=== PATIENT | female | born 1985 | race Caucasian/White ===

== ENCOUNTER 2021-10-31 11:11 | Emergency (ER) | payer OTHER ==
[2021-10-31 11:26] VITALS: BP 124/74; PULSE 104; RESP 16; TEMP 98.6
--- NOTE | 2021-10-31 12:28 | ED ---
General Adult HPI - General Chief complaint: Vaginal Bleeding Stated complaint: 14 wks preg/bleeding Time Seen by Provider: 10/31/21 11:59 Source: patient Mode of arrival: ambulatory Limitations: no limitations - History of Present Illness Initial comments: Patient is a pleasant 36-year-old female presents to the emergency room with complaints of persistent vaginal bleeding. She is currently 14 weeks . She reports that she is having some bleeding last week as well and saw her [employer] MAINTENANCE ASSOCIATE who completed a an ultrasound which advised her that everything looked good in the bleeding was likely secondary to implementation. She is with her first resulting in a due to cord entanglement. She also notes she had elevated amniotic fluid levels throughout her first without any complications. She denies any other significant past medical history. Her MAINTENANCE ASSOCIATE is Dr. Grimes. She is taking vitamins. She denies any cramping, dysuria, urinary frequency or changes in her baseline nausea. She zach es any fevers, chills, or diarrhea. She denies any other complaints or concerns at this time. - Related Data Previous Rx's Medication Instructions Recorded Cephalexin [Keflex] 500 mg PO Q12HR 5 Days #10 cap 10/31/21 Allergies Allergy/AdvReac Type Severity Reaction Status Date / Time soy Allergy Itching Verified 10/31/21 11:27 tree nut [Nut] Allergy Abdominal Verified 10/31/21 11:27 Pain Review of Systems ROS Statement: Those systems with pertinent positive or pertinent negative responses have been documented in the HPI. ROS Other: All systems not noted in ROS Statement are negative. Past Medical History Past Medical History: No Reported History History of Any Multi-Drug Resistant Organisms: None Reported Past Surgical History: Section, Cholecystectomy Additional Past Surgical History / Comment(s): polyp removal from uterus Past Psychological History: Depression Smoking Status: Never smoker Past Alcohol Use History: None Reported Past Drug Use History: None Reported General Exam Limitations: no limitations General appearance: alert, in no apparent distress Head exam: Present: atraumatic, normocephalic, normal inspection Eye exam: Present: normal appearance, PERRL, EOMI. Absent: scleral icterus, conjunctival injection, periorbital swelling ENT exam: Present: normal exam, mucous membranes moist Neck exam: Present: normal inspection. Absent: tenderness, meningismus, lymphadenopathy Respiratory exam: Present: normal lung sounds bilaterally. Absent: respiratory distress, wheezes, rales, rhonchi, stridor Cardiovascular Exam: Present: regular rate, normal rhythm, normal heart sounds. Absent: systolic murmur, diastolic murmur, rubs, gallop, clicks GI/Abdominal exam: Present: soft, normal bowel sounds. Absent: distended, tenderness, guarding, rebound, rigid Rectal exam: Present: deferred Extremities exam: Present: normal inspection, full ROM, normal capillary refill. Absent: tenderness, pedal edema, joint swelling, calf tenderness Back exam: Present: normal inspection Neurological exam: Present: alert, oriented X3, CN II-XII intact Psychiatric exam: Present: normal affect, normal mood Skin exam: Present: warm, dry, intact, normal color. Absent: rash Course Vital Signs 10/31/21 11:23 Temperature 98.6 F Pulse Rate 104 H Respiratory 16 Rate Blood Pressure 124/74 O2 Sat by Pulse 96 Oximetry Medical Decision Making - Medical Decision Making Will check OB transvaginal ultrasound, serum beta levels, CBC, urinalysis along with ABO Rh testing. Transabdominal OB ultrasound shows single viable intrauterine with gestational age consistent with known due date of 14 weeks 2 days and heart rate of 153 bpm. Blood work unremarkable. Urinalysis with trace bacteria likely contaminant however given vaginal bleeding will treat empirically for a urinary tract infection. Will discharge home and advised to follow-up with her MAINTENANCE ASSOCIATE as scheduled. Case discussed with Dr. Gonzalez. - Lab Data Result diagrams: 10/31/21 12:45 Lab Results 10/31/21 10/31/21 10/31/21 Range/Units 12:45 12:45 12:56 WBC 8.1 (3.8-10.6) k/uL RBC 4.48 (3.80-5.40) m/uL Hgb 13.5 (11.4-16.0) gm/dL Hct 39.8 (34.0-46.0) % MCV 89.0 (80.0-100.0) fL MCH 30.1 (25.0-35.0) pg MCHC 33.8 (31.0-37.0) g/dL RDW 13.2 (11.5-15.5) % Plt Count 214 (150-450) k/uL MPV 8.5 Neutrophils % 71 % Lymphocytes % 18 % Monocytes % 5 % Eosinophils % 5 % Basophils % 0 % Neutrophils # 5.7 (1.3-7.7) k/uL Lymphocytes # 1.5 (1.0-4.8) k/uL Monocytes # 0.4 (0-1.0) k/uL Eosinophils # 0.4 (0-0.7) k/uL Basophils # 0.0 (0-0.2) k/uL Urine Color Yellow Urine Appearance Cloudy H (Clear) Urine pH 5.5 (5.0-8.0) Ur Specific [place] 1.026 (1.001-1.035) Urine Protein Trace H (Negative) Urine Glucose (UA) Negative (Negative) Urine Ketones Negative (Negative) Urine Blood Large H (Negative) Urine Nitrite Negative (Negative) Urine Bilirubin Negative (Negative) Urine Urobilinogen <2.0 (<2.0) mg/dL Ur Leukocyte Esterase Negative (Negative) Urine RBC 2 (0-5) /hpf Urine WBC 5 (0-5) /hpf Ur Squamous Epith Cells 18 H (0-4) /hpf Urine Bacteria Rare H (None) /hpf Urine Mucus Many H (None) /hpf Blood Type A Positive Blood Type Recheck No Previous Record Bld Type Recheck Status ABR ONLY - Radiology Data Radiology results: report reviewed, image reviewed Transabdominal uterine ultrasound Viable intrauterine seen at 14 weeks 2 days dissociation with heart tones at 153 bpm Disposition Clinical Impression: Vaginal bleeding Disposition: HOME SELF-CARE Condition: Good Additional Instructions: Please contact her MAINTENANCE ASSOCIATE for recommended follow-up with them. Please return to the Emergency Department if symptoms worsen or any other concerns. Prescriptions: Cephalexin [Keflex] 500 mg PO Q12HR 5 Days #10 cap Is patient prescribed a controlled substance at d/c from ED?: No Referrals: Eliza Kate MD [Primary Care Provider] - 1-2 days Prisca Grimes DO [Doctor of Osteopathic Medicine] - As Soon As Possible Time of Disposition: 13:46
--- NOTE | 2021-10-31 13:04 | US ---
EXAMINATION TYPE: Transabdominal DATE OF EXAM: 10/31/2021 12:50 PM COMPARISON: NONE CLINICAL HISTORY: vaginal bleeding. Spotting since this morning EXAM PERFORMED: Transabdominal (TA) EXAM MEASUREMENTS: GESTATIONAL AGE / DATING Physician Established: (14 weeks/0 days) EDC: 05/01/22 Dates by LMP: LMP unknown Dates by First Scan: No previous this is first scan Dates by Current Scan for: (14 weeks/2 days) EDC: 04/29/22 MATERNAL ANATOMY Uterus: 13.0 x 11.7 x 6.7 cm Right Ovary: Not vis. Left Ovary: 4.3 x 3.7 x 1.9 cm Post CDS / Adnexa: WNL Presence of free fluid: No Presence of corpus luteal cyst: Yes in left ovary measuring 2.1 x 1.7 x 1.7 cm Presence of subchorionic bleed: No GESTATION / SURVEY CRL: 8.4cm (14 weeks/2 days) Heart Rate: 153 bpm Rhythm: Normal IUP: Viable IUP Age Appropriate Anatomy Limbs: Visualized Calvarium: Visualized Date of LMP: Unknown Beta HcG (if available): Unknown Viable IUP seen. IMPRESSION: Single viable intrauterine .
[2021-10-31 13:19] LABS: Basophils % (A) 0 %; Eosinophils # (A) 0.4 k/uL (0-0.7); Eosinophils % (A) 5 %; HCT 39.8 % (34.0-46.0); HGB 13.5 gm/dL (11.4-16.0); Lymphocytes # (A) 1.5 k/uL (1.0-4.8); Lymphocytes % (A) 18 %; MCH 30.1 pg (25.0-35.0); MCHC 33.8 g/dL (31.0-37.0); Mean Platelet Volume 8.5; Monocytes # (A) 0.4 k/uL (0-1.0); Monocytes % (A) 5 %; Neutrophils # (A) 5.7 k/uL (1.3-7.7); Neutrophils % (A) 71 %; Platelet Count 214 k/uL (150-450); RBC 4.48 m/uL (3.80-5.40); RDW 13.2 % (11.5-15.5); WBC 8.1 k/uL (3.8-10.6)
[2021-10-31 13:35] LABS: Appearance,Urine Cloudy (Clear); Bacteria,Urine Rare /hpf; Bilirubin,Urine Negative (Negative); Blood,Urine Large (Negative); Color,Urine Yellow; Glucose,Urine (UA) Negative (Negative); Ketones,Urine Negative (Negative); Leukocyte Esterase,Urine Negative (Negative); Mucus,Urine Many /hpf; Nitrite,Urine Negative (Negative); PH, Urine 5.5 (5.0-8.0); Protein,Urine Trace (Negative); RBC,Urine 2 /hpf (0-5); Specific Gravity,Urine 1.026 (1.001-1.035); Squamous Epithelial Cell,Urine 18 /hpf (0-4); Urobilinogen,Urine <2.0 mg/dL (<2.0); WBC,Urine 5 /hpf (0-5)
== END 2021-10-31 14:13 | disposition home or self-care (01) ==
LOC: EC 11:11
DX: O20.9 Hemorrhage in early pregnancy, unspecified (principal); Z3A.14 14 weeks gestation of pregnancy
CPT/HCPCS: 36415; 76801; 81001; 84702; 85025; 86900; 86901; 99284

== ENCOUNTER 2022-05-04 07:06 | Inpatient (IN) | payer OTHER ==
[2022-05-04] MEDS ORDERED: LIDOCAINE 0.5% (PF) 5 MG/ML (50 ML SDV) SQ PRN (08:04)
[2022-05-04] MEDS ORDERED: TERBUTALINE 1 MG/ML VIAL SQ PRN (08:04)
[2022-05-04] MEDS ORDERED: OXYTOCIN 30 UNITS/500 ML NS 30 UNIT in SALINE 1 500ML.BAG IV SCH ×2 (08:15→13:00)
[2022-05-04] MEDS: LACTATED RINGERS 1,000 ML IV SCH ×3 (08:49→23:38)
[2022-05-04 09:04] LABS: Basophils % (A) 0 %; Eosinophils # (A) 0.3 k/uL (0-0.7); Eosinophils % (A) 2 %; HCT 35.6 % (34.0-46.0); HGB 12.6 gm/dL (11.4-16.0); Lymphocytes # (A) 2.2 k/uL (1.0-4.8); Lymphocytes % (A) 17 %; MCH 30.6 pg (25.0-35.0); MCHC 35.6 g/dL (31.0-37.0); Mean Platelet Volume 11.1; Monocytes # (A) 0.6 k/uL (0-1.0); Monocytes % (A) 4 %; Neutrophils # (A) 10.1 k/uL (1.3-7.7); Neutrophils % (A) 75 %; Platelet Count 187 k/uL (150-450); RBC 4.13 m/uL (3.80-5.40); RDW 13.8 % (11.5-15.5); WBC 13.4 k/uL (3.8-10.6)
[2022-05-04] MEDS ORDERED: BUTORPHANOL 1 MG/ML 1 ML VIAL IV PRN (09:29)
[2022-05-04] MEDS ORDERED: CITRIC ACID-SODIUM CITRATE 15 ML CUP PO ONE (11:40)
[2022-05-04] MEDS ORDERED: MORPHINE SULFATE (PF) 0.3 MG/0.3 ML SYR ONE (12:13)
[2022-05-04] MEDS ORDERED: OXYTOCIN 30 UNITS/500 ML NS BAG IV ONE (12:13)
[2022-05-04] MEDS ORDERED: KETOROLAC 15 MG/ML 1 ML VIAL ONE (12:13)
[2022-05-04] MEDS ORDERED: NALBUPHINE 10 MG/ML (1 ML AMP) ONE (12:13)
[2022-05-04] MEDS ORDERED: diphenhydrAMINE 25 MG CAP PO PRN (12:50)
[2022-05-04] MEDS ORDERED: diphenhydrAMINE 50 MG/ML 1 ML VIAL IVP PRN ×2 (12:50)
[2022-05-04] MEDS ORDERED: ZOLPIDEM 5 MG TAB PO PRN (12:50)
[2022-05-04] MEDS ORDERED: ONDANSETRON 4 MG/2 ML VIAL IVP PRN (12:50)
[2022-05-04] MEDS ORDERED: diphenhydrAMINE 50 MG CAP PO PRN (12:50)
[2022-05-04] MEDS ORDERED: NALOXONE 0.4 MG/ML 1 ML VIAL IV PRN (12:50)
[2022-05-04] MEDS ORDERED: METOCLOPRAMIDE 5 MG/ML 2 ML VIAL IVP PRN (12:50)
[2022-05-04] MEDS ORDERED: LANOLIN CREAM 5 GM TUBE TOPICAL PRN (12:50)
--- NOTE | 2022-05-04 16:39 | P.HPOB ---
History of Present Illness H&P Date: 05/04/22 Chief Complaint: SROM, previous 36-year-old presents at 40 weeks and 3 days complaining of contractions. She was actually found to be ruptured with thick meconium fluid but had no idea when she started leaking. Her cervix was closed, 70% effaced, and -2 station. She is hugo irregularly. heart tones 140 with moderate variability and reactive. The patient had wanted to but with a closed cervix this is unlikely to happen. I was willing to give her a few hours to make some cervical change but she did this and did not make any change. Patient was remote from delivery and we don't know if she has prolonged rupture, she also has thick meconium fluid. repeat section was advised and patient and her agreed to the plan. Review of Systems All systems: negative Constitutional: Denies chills, Denies fever Eyes: denies blurred vision, denies pain Ears, nose, mouth and throat: Denies headache, Denies sore throat Cardiovascular: Denies chest pain, Denies shortness of breath Respiratory: Denies cough Gastrointestinal: Denies abdominal pain, Denies diarrhea, Denies nausea, Denies vomiting Genitourinary: Denies dysuria, Denies hematuria Musculoskeletal: Denies myalgias Integumentary: Denies pruritus, Denies rash Neurological: Denies numbness, Denies weakness Psychiatric: Denies anxiety, Denies depression Endocrine: Denies fatigue, Denies weight change Past Medical History Past Medical History: No Reported History History of Any Multi-Drug Resistant Organisms: None Reported Past Surgical History: Section, Cholecystectomy Additional Past Surgical History / Comment(s): polyp removal from uterus Past Anesthesia/Blood Transfusion Reactions: No Reported Reaction Past Psychological History: Depression Smoking Status: Never smoker Past Alcohol Use History: None Reported Past Drug Use History: None Reported - Past Family History Father Family Medical History: Respiratory Disorder Mother Family Medical History: Cancer Medications and Allergies Home Medications Medication Instructions Recorded Confirmed Type Cephalexin [Keflex] 500 mg PO Q12HR 5 Days #10 cap 10/31/21 Rx Allergies Allergy/AdvReac Type Severity Reaction Status Date / Time latex Allergy Swelling Verified 05/04/22 07:37 soy Allergy Itching Verified 05/04/22 07:37 tree nut [Nut] Allergy Abdominal Verified 05/04/22 07:37 Pain Exam Osteopathic Statement: *. No significant issues noted on an osteopathic structural exam other than those noted in the History and Physical/Consult. Vital Signs Temp Pulse Resp BP Pulse Ox 05/04/22 15:16 96.5 F L 64 16 116/69 97 05/04/22 14:55 75 16 106/55 98 05/04/22 14:25 65 16 129/74 97 05/04/22 13:55 106 H 16 150/89 95 05/04/22 13:40 71 16 121/65 95 05/04/22 13:25 74 16 116/59 96 05/04/22 13:10 75 16 115/56 96 05/04/22 12:55 97.2 F L 86 16 117/60 98 05/04/22 08:04 97.3 F L 76 16 135/72 98 05/04/22 07:51 97.3 F L 76 16 135/72 Intake and Output 05/04/22 05/04/22 05/04/22 06:59 14:59 22:59 Intake Total 700 Output Total 665 100 Balance 35 -100 Intake: IV 700 Output: Urine 200 100 Uretheral (Bowers) 100 Output, Quantitative 465 Blood Loss Other: Weight 116.12 kg Heart: Regular rate and rhythm Lungs: Clear to auscultation bilaterally Abdomen: Soft, nontender Extremities: Negative Homans sign Results Result Diagrams: 05/04/22 08:30 Abnormal Lab Results - Last 24 Hours (Table) 05/04/22 Range/Units 08:30 WBC 13.4 H (3.8-10.6) k/uL Neutrophils # 10.1 H (1.3-7.7) k/uL Assessment and Plan (1) Spontaneous rupture of membranes Current Visit: Yes Status: Acute Code(s): UJO9219 - SNOMED Code(s): 396158727 (2) 40 weeks gestation of Current Visit: Yes Status: Acute Code(s): Z3A.40 - 40 WEEKS GESTATION OF SNOMED Code(s): 41774518 (3) Thick meconium stained amniotic fluid Current Visit: Yes Status: Acute Code(s): P96.83 - MECONIUM STAINING SNOMED Code(s): 629993228 (4) Previous section Current Visit: Yes Status: Acute Code(s): Z98.891 - HISTORY OF UTERINE SCAR FROM PREVIOUS SURGERY SNOMED Code(s): 255983113 Plan: 1. Repeat low transverse
--- NOTE | 2022-05-04 16:42 | P.OP ---
Date of Procedure: 05/04/22 Preoperative Diagnosis: 1. SROM 2. thick meconium 3. previous 4. at 40 weeks 3 days Postoperative Diagnosis: 1. SROM 2. thick meconium 3. previous 4. at 40 weeks 3 days Procedure(s) Performed: repeat low transverse Anesthesia: spinal Surgeon: Tran Benavides Flatwork Feeder #1: Efrain Johnson Estimated Blood Loss (ml): 340 IV fluids (ml): 700 Urine output (ml): 200 Pathology: none sent Condition: stable Disposition: floor Operative Findings: Viable male, Apgars 8, 9, weight 7 lbs. 4 oz. Description of Procedure: Patient was taken to the operating room where spinal anesthesia was found be adequate. She was prepped and draped in normal sterile fashion in dorsal supine position with a leftward tilt. Pfannenstiel skin incision was made the scalpel and carried through to the underlying layer of fascia with the scalpel. Fascia was incised in midline and carried bilaterally with the Shin scissors. The superior aspect of the fascial incision was grasped with Rifton clamps elevated and the underlying rectus muscles dissected off with the Shin's. Attention was then turned to inferior aspect of same incision which in a similar fashion was grasped tented up and the underlying rectus muscles dissected off with the Shin's. The rectus muscles were the midline and the peritoneum was identified tented up and entered sharply with the scalpel. The incision was extended superiorly and inferiorly with good visualization of the bladder. The bladder blade was inserted and the vesicouterine peritoneum was incised the Metzenbaums then carried bilaterally and bladder flap created digitally. A low transverse incision was then made on the uterus with the scalpel. This was carried bilaterally and digital manner. Infant's head delivered atraumatically, nose and mouth bulb suctioned, cord clamped and cut, infant handed off to waiting nurses. Apgars 8,9, weight 7 lbs. 4 oz. Placenta delivered manually, intact with three-vessel cord. The uterus is exteriorized and cleared of all clots and debris. The uterine incision was closed with 0 Vicryl in a running locked fashion. Second layer of the same sutures used in imbricating fashion to obtain excellent hemostasis. Both ovaries and tubes appeared normal. The uterus was placed back into the abdomen. The peritoneum was reapproximated using 2-0 Vicryl in a running fashion. The muscles were reapproximated using 2- 0 Vicryl in interrupted fashion. The fascia was reapproximated using 0 Vicryl in a running fashion. The subcutaneous tissues closed with 3-0 Vicryl running fashion. The skin was closed isaias. Patient tolerated the procedure well, sponge and instrument counts were correct times 2 and she was taken to the recovery room in stable condition.
[2022-05-04] MEDS: ACETAMINOPHEN TAB 500 MG TAB PO SCH ×2 (17:18→23:37)
[2022-05-04] MEDS: KETOROLAC 15 MG/ML 1 ML VIAL IVP SCH (18:04)
[2022-05-04] MEDS: SENNOSIDES-DOCUSATE SODIUM 1 EACH TAB PO SCH (21:06)
--- NOTE | 2022-05-04 21:25 | P.MSEPDOC ---
Presenting Problems - Arrival Data Date of Arrival on Unit: 05/04/22 Time of Arrival on Unit: 07:06 Mode of Transport: Ambulatory - Complaint OB-Reason for Admission/Chief Complaint: Possible Onset of Labor Medical History - Information : 2 Para: 1 Term: 1 : 0 Abortions: Spontaneous or Elective: 0 Number of Living Children: 1 - Gestational Age Gestational Age by MELYSSA (wks/days): 40 Weeks and 3 Days - History Complications: Prior Review of Systems - Review of Systems Constitutional: No problems Breast: No problems ENT: No problems Cardiovascular: No problems Respiratory: No problems Gastrointestinal: No problems Genitourinary: No problems Musculoskeletal: No problems Neurological: No problems Skin: No problems Vital Signs - Temperature Temperature: 97.7 F Temperature Source: Oral - Pulse Right Sitting Pulse Rate: 84 Pulse Assessment Method: Pulse Oximetry - Respirations Respiratory Rate: 16 Oxygen Delivery Method: Room Air O2 Sat by Pulse Oximetry: 96 - Blood Pressure Right Arm Blood Pressure: 114/77 Blood Pressure Mean: 89 Blood Pressure Source: Automatic Cuff Medical Screen Scoring - Cervical Exam Dilation (cm): 1 Effacement (%): 100 Station: -1 Membranes: Ruptured - Uterine Contractions Frequency From (mins): 2 Frequency To (mins): 4 Duration From (seconds): 50 Duration To (seconds): 70 Intensity: Strong Resting: Soft to palpation - Assessment - Baby A Baseline FHR: 125 Heart Rate - NICHD Category: Category I (Normal) NST: Reactive Physician Notification - Physician Notified Physician Notified Date: 05/04/22 Physician Notified Time: 08:04 Physician: Tran Benavides New Order Received: Yes (admit) Maternal Triage Index - Prompt/Priority 3 Prompt Priority 3: Yes Criteria Met for Priority 3: SROM, questionable vag exam 1.5cm/100%, contractions every 2-4 minutes, recctive nst Disposition - Disposition OB Disposition: Admit, LDRP Suite I agree with the RN Medical Screening Exam: Yes Case reviewed; plan agreed upon as documented in EMR&OBIX.: Yes Diagnosis: ENCOUNTER FOR FULL-TERM UNCOMPLICATED DELIVERY
[2022-05-04] MEDS: IBUPROFEN 600 MG TAB PO SCH (23:38)
[2022-05-05] MEDS: KETOROLAC 15 MG/ML 1 ML VIAL IVP SCH ×2 (00:20→06:05)
[2022-05-05] MEDS: IBUPROFEN 600 MG TAB PO SCH ×4 (03:58→20:04)
[2022-05-05] MEDS: LACTATED RINGERS 1,000 ML IV SCH ×3 (03:59→14:15)
[2022-05-05] MEDS: ACETAMINOPHEN TAB 500 MG TAB PO SCH ×4 (06:12→23:53)
--- NOTE | 2022-05-05 07:02 | P.PN ---
Progress Note - Text Date: 05/05/2022 Time: 6:21 The patient is status post section Vital signs stable VAS: 0-10 Patient has no complaints of pain. The patient incurred some minimal itching yesterday, this itching is now subsiding. Pain meds to be managed by service.
[2022-05-05 08:54] LABS: Basophils % (A) 0 %; Eosinophils # (A) 0.2 k/uL (0-0.7); Eosinophils % (A) 2 %; HCT 33.7 % (34.0-46.0); HGB 11.5 gm/dL (11.4-16.0); Lymphocytes # (A) 2.1 k/uL (1.0-4.8); Lymphocytes % (A) 18 %; MCH 29.7 pg (25.0-35.0); MCV 87.1 fL (80.0-100.0); Monocytes # (A) 0.5 k/uL (0-1.0); Monocytes % (A) 5 %; Neutrophils # (A) 8.3 k/uL (1.3-7.7); Neutrophils % (A) 73 %; Platelet Count 186 k/uL (150-450); RBC 3.86 m/uL (3.80-5.40); RDW 13.9 % (11.5-15.5); WBC 11.4 k/uL (3.8-10.6)
--- NOTE | 2022-05-05 09:02 | P.PNOBGPC ---
Subjective - Subjective Principal diagnosis: Status post repeat section postoperative day #1 Interval history: Patient is doing well. She has not been able to urinate yet. She was to straight cathed for 1100 mL's. Baby is doing well. Lochia is been decreasing. Her pain is fairly well controlled. Patient reports: Reports appetite normal, Reports voiding normally, Reports pain well controlled, Reports ambulating normally : doing well Objective - Vital Signs Latest vital signs: Vital Signs Temp Pulse Resp BP Pulse Ox 05/05/22 08:00 85 16 135/84 98 05/05/22 04:00 97.8 F 76 16 118/75 99 05/05/22 00:00 98.3 F 82 16 127/79 95 05/04/22 21:25 97.7 F 84 16 114/77 96 05/04/22 20:00 97.7 F 84 16 114/77 96 05/04/22 15:16 96.5 F L 64 16 116/69 97 05/04/22 14:55 75 16 106/55 98 05/04/22 14:25 65 16 129/74 97 05/04/22 13:55 106 H 16 150/89 95 05/04/22 13:40 71 16 121/65 95 05/04/22 13:25 74 16 116/59 96 05/04/22 13:10 75 16 115/56 96 05/04/22 12:55 97.2 F L 86 16 117/60 98 Intake and Output 05/04/22 05/05/22 05/05/22 22:59 06:59 14:59 Output Total 100 1100 Balance -100 -1100 Output: Urine 100 1100 Uretheral (Bowers) 100 - Exam Extremities: Present: normal. Absent: tenderness, edema Abdomen: Present: normal appearance, soft (Positive bowel sounds 4). Absent: distention, tenderness Incision: Present: normal, dry, intact. Absent: erythematous Uterus: Present: normal, firm. Absent: tenderness - Labs Labs: Abnormal Lab Results - Last 24 Hours (Table) 05/04/22 05/05/22 Range/Units 08:30 08:34 WBC 13.4 H 11.4 H (3.8-10.6) k/uL Hct 33.7 L (34.0-46.0) % Neutrophils # 10.1 H 8.3 H (1.3-7.7) k/uL Assessment and Plan Assessment: Status post repeat low transverse section postoperative day #1 Plan: Continue with postoperative care today. Anticipate possible discharge home tomorrow. Patient is advised to let her nurse no she is unable to urinate again after 6 hours.
[2022-05-05] MEDS: SENNOSIDES-DOCUSATE SODIUM 1 EACH TAB PO SCH ×2 (09:57→20:03)
[2022-05-06 00:41] VITALS: TEMP 98.2
[2022-05-06] MEDS: IBUPROFEN 600 MG TAB PO SCH ×2 (02:59→08:12)
[2022-05-06] MEDS: ACETAMINOPHEN TAB 500 MG TAB PO SCH ×2 (05:35→10:32)
[2022-05-06] MEDS: SENNOSIDES-DOCUSATE SODIUM 1 EACH TAB PO SCH (08:12)
--- NOTE | 2022-05-06 08:46 | P.DS ---
Providers Date of admission: 05/04/22 07:48 Expected date of discharge: 05/06/22 Attending physician: Tran Benavides Primary care physician: Stated None Hospital Course: this is a 36-year-old female 2 para 1 at 40-3/7 weeks who presented for active labor. She had spontaneous rupture of membranes with thick meconium. She did not make any cervical change and requested section. She underwent a repeat low transverse section on 05/04/2022 and delivered a viable male with scores of 8 at 1 minute and 9 at 5 minutes and weight of 7 lbs. 4 oz. Her postoperative and course have been uncomplicated. Lochia has been decreasing. Her pain is been fairly well- controlled with ibuprofen and Tylenol. She is breast-feeding. Vital signs are stable. Abdomen is soft with fundus nontender. Positive bowel sounds 4 are noted. Extremities show negative Homans. Impression is status post repeat low transverse section postoperative day #2. Plan is to discharge home today is on this baby is able to go home. Postoperative and instructions are given. She will be given a prescription for ibuprofen. She is advised to call the office if she has any further questions or concerns prior to her appointment time. She is advised to follow up in the office in 6 weeks for check and in 1 week for a postoperative check. Procedures: repeat low transverse section on 05/04/2022 Patient Condition at Discharge: Stable Plan - Discharge Summary New Discharge Prescriptions: New Ibuprofen [Motrin] 600 mg PO Q6H #60 tab Acetaminophen Tab [Tylenol] 1,000 mg PO Q6H tab Discontinued Cephalexin [Keflex] 500 mg PO Q12HR 5 Days #10 cap Discharge Medication List Acetaminophen Tab [Tylenol] 1,000 mg PO Q6H tab 05/06/22 [Rx] Ibuprofen [Motrin] 600 mg PO Q6H #60 tab 05/06/22 [Rx] Follow up Appointment(s)/Referral(s): Prisca Grimes DO [Doctor of Osteopathic Medicine] - 06/22/22 11:30 am (Post Op appt 05-13-2022 at 1:30) Activity/Diet/Wound Care/Special Instructions: Instructions 1. Do not begin any exercise program for 3 weeks. 2. Do not resume sexual relations for 3 weeks or longer if uncomfortable. 3. You may take tub baths or showers at any time. 4. You may use tampons if desired after 3 weeks. 5. Keep the area of episiotomy (stitches) clean and dry. 6. If you are not nursing, wear a good fitting, supportive bra during the day and limit fluid intake for at least 1 week to prevent breast engorgement. 7. Call the office, [phone], within the next week to make appointment for your 6 week checkup if it has not already been made. 8. Report any of the following occurrences to the doctor promptly: a. Heavy, excessive bleeding b. Chills, fever c. Burning or frequency of urination d. Pain or redness and breasts if nursing e. Increasing pain or swelling in episiotomy (stitches). In addition to the above instructions, the following additional should be followed: 1. No heavy lifting or straining (exercising) until after 6 week checkup. 2. Keep abdominal incision clean and dry: You may wear a dressing if more comfortable. 3. Make office appointment for 10 days after going home or as instructed by her doctor. Discharge Disposition: HOME SELF-CARE
[2022-05-06 10:06] VITALS: BP 127/81; PULSE 85; RESP 18
== END 2022-05-06 12:00 | disposition home or self-care (01) | DRG 788 ==
LOC: FBPOP 07:06 → 4FBP 07:48
PROVIDERS: ADMIT Obstetrics & Gynecology; ATTEND Obstetrics & Gynecology
PROC: 4A0HXCZ Measurement of Products of Conception, Cardiac Rate, External Approach (ICD-10-PCS; 2022-05-04)
PROC: 10D00Z1 Extraction of Products of Conception, Low, Open Approach (ICD-10-PCS; principal; 2022-05-04 12:15)
DX: O34.211 Maternal care for low transverse scar from previous cesarean delivery (principal); F32.A Depression, unspecified; O48.0 Post-term pregnancy; O99.344 Other mental disorders complicating childbirth; O99.73 Diseases of the skin and subcutaneous tissue complicating the puerperium; L29.9 Pruritus, unspecified; O77.0 Labor and delivery complicated by meconium in amniotic fluid; Z37.0 Single live birth; Z3A.40 40 weeks gestation of pregnancy; Z91.040 Latex allergy status; Z91.018 Allergy to other foods; Z90.49 Acquired absence of other specified parts of digestive tract
CPT/HCPCS: 59025; 84112; 85025; 86850; 86900; 86901; 99213